=== PATIENT | male | born 1995 | race Two or more races ===

== ENCOUNTER 2016-06-24 08:34 | Emergency (ER) | payer MEDICAID ==
[~2016-06-24] VITALS: Ht 177.8 cm; Wt 83.9 kg
[2016-06-24 08:47] VITALS: BP 114/91
== END 2016-06-24 10:43 | disposition left against medical advice (07) ==
LOC: ER 08:34
DX: S61.012A Laceration without foreign body of left thumb without damage to nail, initial encounter (principal); X58.XXXA Exposure to other specified factors, initial encounter; Y93.89 Activity, other specified; Y99.8 Other external cause status; Y92.810 Car as the place of occurrence of the external cause; Z53.21 Procedure and treatment not carried out due to patient leaving prior to being seen by health care provider